=== PATIENT | female | born 1975 | race African-American/Black ===

== ENCOUNTER 2021-07-12 17:07 | Emergency (ER) | payer BC, MEDICAID ==
[~2021-07-12] VITALS: Ht 167.6 cm; Wt 64.0 kg
[2021-07-12] MEDS ORDERED: KETOROLAC 60MG/2ML VIAL IM ONE (17:45)
[2021-07-12] MEDS ORDERED: CYCLOBENZAPRINE 10MG TABLET PO ONE (17:45)
[2021-07-12] MEDS ORDERED: CYCL5TAB MT (18:33)
[2021-07-12] MEDS ORDERED: IBUP-2030 MT (18:33)
[2021-07-12 20:35] VITALS: BP 172/102
== END 2021-07-12 20:45 | disposition home or self-care (01) ==
LOC: ER 17:07
DX: R07.89 Other chest pain (principal); M54.89 Other dorsalgia; M79.18 Myalgia, other site; G89.11 Acute pain due to trauma; V43.52XA Car driver injured in collision with other type car in traffic accident, initial encounter; Y93.89 Activity, other specified; Y92.414 Local residential or business street as the place of occurrence of the external cause; I10 Essential (primary) hypertension; E11.9 Type 2 diabetes mellitus without complications
CPT/HCPCS: 71045; 96372; 99283; J1885